=== PATIENT | female | born 1955 | race Two or more races ===

== ENCOUNTER 2025-01-11 13:20 | Outpatient (CLI) | payer OTHER | END 2025-01-11 13:22 | disposition home or self-care (01) | LOC: NUCLEAR 13:20 | DX: G31.83 Neurocognitive disorder with Lewy bodies (principal); F03.90 Unspecified dementia, unspecified severity, without behavioral disturbance, psychotic disturbance, mood disturbance, and anxiety; F02.80 Dementia in other diseases classified elsewhere, unspecified severity, without behavioral disturbance, psychotic disturbance, mood disturbance, and anxiety; F01.50 Vascular dementia, unspecified severity, without behavioral disturbance, psychotic disturbance, mood disturbance, and anxiety | CPT/HCPCS: 78803; A9557 ==